=== PATIENT | male | born 1975 | race African-American/Black ===

== ENCOUNTER 2017-03-09 12:33 | Emergency (ER) | payer MEDICAID ==
[~2017-03-09] VITALS: Ht 175.3 cm; Wt 90.0 kg
[~2017-03-09 12:33] MED LIST: INSLAN SQ; INSNOV SQ
[2017-03-09 12:45] VITALS: BP 134/84
[2017-03-09 13:02] LABS: GLUCOSE,POINT OF CARE 225 MG/DL (70-110)
[2017-03-09] MEDS ORDERED: OxyCODONE HCL/ACETAMINOPHEN 10-325 MG TABLET PO ONE (13:15)
[2017-04-06] MEDS ORDERED: [UNRECOGNIZED DRUG - CODE] IVPB (12:11)
[2017-04-06] MEDS ORDERED: CALC25 PO (12:14)
[2017-04-06] MEDS ORDERED: CEFE2I IV (12:15)
[2017-04-06] MEDS ORDERED: DSS100 PO (12:18)
[2017-04-06] MEDS ORDERED: EPOE10003 SQ (12:22)
[2017-04-06] MEDS ORDERED: FURO40I IV ×2 (12:22→12:24)
[2017-04-06] MEDS ORDERED: LABE200T PO (12:26)
[2017-04-06] MEDS ORDERED: HEPA100D17 SQ (12:26)
[2017-04-06] MEDS ORDERED: ZARO2.5 PO (12:27)
[2017-04-06] MEDS ORDERED: MUPI1OIN5 TP (12:28)
[2017-04-06] MEDS ORDERED: NICO14T TD (12:29)
[2017-04-06] MEDS ORDERED: NIFE60TA71 PO (12:30)
[2017-04-06] MEDS ORDERED: PANT40TA25 PO (12:30)
[2017-04-06] MEDS ORDERED: SEVEC800 PO (12:31)
[2017-04-06] MEDS ORDERED: SODI650T PO (12:32)
[2017-04-06] MEDS ORDERED: [UNRECOGNIZED DRUG - CODE] IV (12:33)
[2017-04-06] MEDS ORDERED: ACET-784 PO (12:33)
[2017-04-06] MEDS ORDERED: ALBU5SOL6 NEB (12:35)
[2017-04-06] MEDS ORDERED: BISA10S PR (12:35)
[2017-04-06] MEDS ORDERED: A20IH1 IH (12:35)
[2017-04-06] MEDS ORDERED: D50SYG IVP (12:39)
[2017-04-06] MEDS ORDERED: [UNRECOGNIZED DRUG - CODE] IV (12:42)
[2017-04-06] MEDS ORDERED: OXYC-38 PO (12:44)
== END 2017-03-09 13:41 | disposition home or self-care (01) ==
LOC: EMS 12:35
DX: G89.18 Other acute postprocedural pain (principal); F17.210 Nicotine dependence, cigarettes, uncomplicated; E11.9 Type 2 diabetes mellitus without complications; I10 Essential (primary) hypertension; Z79.4 Long term (current) use of insulin; Z88.6 Allergy status to analgesic agent
CPT/HCPCS: 82962; 99283